=== PATIENT | male | born 1960 | race Caucasian/White ===

== ENCOUNTER → 2016-11-20 | Outpatient (CLI) | payer OTHER ==
[~2016-11-20] MED LIST: ASPI-232 PO; CLX20 PO; GABA1CAP PO; MULTTAB PO; TRVHP PO; [UNRECOGNIZED DRUG - CODE] PO; valcyclovir PO
[2016-11-25 11:38] LABS: LSP % CELLS ANALYZED CD4 26 % (30-61); LSP ABSOLUTE CT CD4 350 cells/uL (490-1740); LSP LYMPHOCYTES ABSOLUTE 1341 cells/uL (850-3900)
== END | disposition home or self-care (01) ==
LOC: C.LAB1850 10:44
PROVIDERS: ATTEND Internal Medicine Infectious Disease
DX: B20 Human immunodeficiency virus [HIV] disease (principal)

== ENCOUNTER → 2017-01-01 | Outpatient (CLI) | payer OTHER ==
--- NOTE | 2017-01-01 15:28 | DIAGNOSTIC IMAGING REPORT ---
CERVICAL SPINE 5 VIEWS CLINICAL HISTORY: Chronic neck pain. Cervicalgia. FINDINGS: AP, lateral, bilateral oblique, and odontoid views of the cervical spine are correlated with MRI of the cervical spine dated 07/09/2015. The skeletal structures are well mineralized. There is no radiographic evidence of fracture or subluxation. Vertebral body height is maintained. There is minimal anterolisthesis at C4-C5 and C6-C7. Alignment is otherwise preserved. The odontoid process and lateral masses appear intact on the open-mouth view. The spinolaminar line is preserved. There is mild to moderate degenerative disc space narrowing seen at C5-C6 and C6-C7. Posterior disc osteophyte complexes at C4-C5, C5-C6, and C6-C7 may contribute to minimal acquired compromise of the central canal. Anterior osteophytes are noted at C5-C6. Multilevel neural foraminal stenosis is suggested on the left, greatest at C4-C5 and C5-C6. Only mild neuroforaminal stenosis is suggested on the right. The prevertebral soft tissues are within normal limits. Partially imaged apical lung parenchyma appears clear. IMPRESSION: 1. No acute bony abnormality is seen involving the cervical spine. 2. Cervical spondylosis as detailed above. Dictated: 01/01/2017 11:05 AM Transcribed: 01/01/2017 3:28 PM [email or web address] Electronically signed by: Cristian Burciaga M.D. 01/01/2017 3:30 PM Dictated Date/Time: 01/01/2017 11:05 AM
== END | disposition home or self-care (01) ==
LOC: C.RAD 10:35
PROVIDERS: ATTEND Physician Assistant
DX: M54.12 Radiculopathy, cervical region (principal); M47.812 Spondylosis without myelopathy or radiculopathy, cervical region

== ENCOUNTER → 2017-02-04 | Outpatient (CLI) | payer OTHER ==
[2017-02-04 12:44] LABS: ALT/SGPT 18 U/L (12-78); BLOOD UREA NITROGEN 22 mg/dl (7-18); BUN/CREATININE RATIO 16.6 (10-20); CALCIUM 8.9 mg/dl (8.5-10.1); CARBON DIOXIDE 28 mmol/L (21-32); CHLORIDE 106 mmol/L (98-107); CHOLESTEROL 154 mg/dl (0-200); GLUCOSE 83 mg/dl (70-99); SODIUM 142 mmol/L (136-145); TRIGLYCERIDES 146 mg/dl (0-150); VERY LOW DENSITY LIPOPROT CALC 29 mg/dl
[2017-02-04 12:51] LABS: ALB/GLOB RATIO 1.3 (0.9-2); ALKALINE PHOSPHATASE 124 U/L (45-117); AST/SGOT 23 U/L (15-37); CHOLESTEROL/HDL RATIO 2.8; HDL CHOLESTEROL 56 mg/dl; LDL CHOLESTEROL CALCULATED 69 mg/dl
== END | disposition home or self-care (01) ==
LOC: C.LAB1850 11:20
PROVIDERS: ATTEND Internal Medicine
DX: R73.9 Hyperglycemia, unspecified (principal); E78.5 Hyperlipidemia, unspecified

== ENCOUNTER → 2017-03-09 | Outpatient (CLI) | payer OTHER ==
[2017-03-09 10:21] LABS: BASO % 0.2 %; BASO ABS # 0.01 K/uL (0-0.2); COMPLETE YES; IG% 0.2 %; LYMPH % 26.3 %; LYMPH ABS # 1.31 K/uL (1.2-3.4); MEAN CORPUSCULAR HEMOGLOBIN 33.5 pg (25-34); MEAN PLATELET VOLUME 8.9 fL (7.4-10.4); MONO % 8.2 %; NEUT % 63.1 %; PLATELET COUNT 190 K/uL (130-400); WHITE BLOOD COUNT 4.98 K/uL (4.8-10.8)
[2017-03-09 11:02] LABS: ALT/SGPT 18 U/L (12-78); AST/SGOT 20 U/L (15-37); BLOOD UREA NITROGEN 28 mg/dl (7-18); BUN/CREATININE RATIO 19.9 (10-20); CALCIUM 8.7 mg/dl (8.5-10.1); CARBON DIOXIDE 27 mmol/L (21-32); CHLORIDE 104 mmol/L (98-107); CHOLESTEROL 155 mg/dl (0-200); GLUCOSE 125 mg/dl (70-99); POTASSIUM 3.9 mmol/L (3.5-5.1); SODIUM 138 mmol/L (136-145)
[2017-03-09 11:06] LABS: ALB/GLOB RATIO 1.2 (0.9-2); ALKALINE PHOSPHATASE 129 U/L (45-117); CHOLESTEROL/HDL RATIO 2.9; HDL CHOLESTEROL 54 mg/dl; LDL CHOLESTEROL CALCULATED 76 mg/dl; TRIGLYCERIDES 125 mg/dl (0-150); VERY LOW DENSITY LIPOPROT CALC 25 mg/dl
[2017-03-12 14:16] LABS: CHLAMYDIA TRACH RNA*** NOT DETECTED (NOT DETECTED); GC (NEIS GONORRHOEAE)RNA** NOT DETECTED (NOT DETECTED); HEPATITIS C VIRAL RNA BY PCR <15 NOT DETECTED IU/ML (<15); HEPATITIS C VIRAL RNA(LOG) PCR <1.18 NOT DETECTED LOG IU/ML (<1.18); HERPES SIMPLEX AB IGG-1 3.25 INDEX (< 0.90); HERPES SIMPLEX AB IGG-2 4.44 INDEX (< 0.90); LSP % CELLS ANALYZED CD4 26 % (30-61); LSP ABSOLUTE CT CD4 355 cells/uL (490-1740); LSP LYMPHOCYTES ABSOLUTE 1365 cells/uL (850-3900)
== END | disposition home or self-care (01) ==
LOC: C.LAB1850 09:24
PROVIDERS: ATTEND Internal Medicine Infectious Disease
DX: B20 Human immunodeficiency virus [HIV] disease (principal)

== ENCOUNTER 2017-09-11 00:36 | Observation (INO) | payer OTHER ==
[~2017-09-11] VITALS: Ht 179.1 cm; Wt 77.0 kg
--- NOTE | 2017-09-11 00:58 | EMERGENCY ROOM VISIT NOTE ---
History Report prepared by Audie: Nahid Ayoub Under the Supervision of: Dr. Arya Patel M.D. First contact with patient: 00:49 Chief Complaint: CHEST PAIN Stated Complaint: CHEST PAIN History of Present Illness The patient is a 57 year old male who presents to the Emergency Room with complaints of worsening chest pain that began 2 hours ago. Patient states he was "texting a friend" when the symptoms came on. Patient describes the pain as a "heartburn". He states he his typically able to relieve the pain with Tums. Patient has associated symptoms of back pain and jaw pain. He denies any abdominal pain. Pertinent past medical history includes HIV. He states he been HIV positive for 33 years. Pertinent past surgical history includes a cholecystectomy. He states his PCP is Dr. Zafar. Patient states that he has a history of stress tests. He adds that he takes a baby aspirin a day. Pertinent past medical history includes a stroke in 2006. Pertinent family history includes cardiac stents. Patient adds that he has a history of IV drug use. Source of History: patient Onset: 2 hours ago Position: chest Timing: worsening Associated Symptoms: + back pain Note: Patient has jaw pain. Review of Systems See HPI for pertinent positives & negatives. A total of 10 systems reviewed and were otherwise negative. Past Medical & Surgical Medical Problems: (1) HTN (hypertension) (2) Precordial chest pain Family History Cancer Diabetes mellitus Gallbladder disease Heart disease Hypertension Lung disease Social History Smoking Status: Never Smoker Alcohol Use: occasionally Housing Status: lives with family Occupation Status: disabled Current/Historical Medications Scheduled Aspirin (Aspir-81), 1 TAB PO DAILY Bupropion Hcl (Wellbutrin Sr), 150 MG PO QAM Diclofenac Sodium (Topical) (Diclofenac Sodium), 1 APPLN TOP BID Duloxetine Hcl (Cymbalta), 60 MG PO DAILY Emtricitabine/Temofovir (Truvada 200/300MG), 1 TAB PO DAILY Gabapentin (Neurontin), 600 MG PO TID Lidocaine HCl (Lidocaine), 1 APPLN TOP UD Lopinavir/Ritonavir (Kaletra 200/50MG), 2 TAB PO BID Meloxicam (Meloxicam), 15 MG PO DAILY Multivitamins/Minerals (Mvi With Minerals), 1 TAB PO DAILY Tamsulosin Hcl (Flomax), 0.4 MG PO DAILY Valacyclovir Hcl (Valtrex), 1 GM PO DAILY Scheduled PRN Lorazepam (Lorazepam), 0.5 MG PO BID PRN for Anxiety Tizanidine Hcl (Zanaflex), 2 MG PO BID PRN for Muscle Spasms Zolpidem Tartrate (Zolpidem Tartrate), 10 MG PO HS PRN for Insomnia Allergies Coded Allergies: No Known Allergies (Unverified , 03/26/14) Physical Exam Vital Signs Date Time Temp Pulse Resp B/P (MAP) Pulse Ox O2 Delivery O2 Flow Rate FiO2 09/11/17 04:40 84 13 99 09/11/17 04:30 129/82 09/11/17 04:16 67 09/11/17 04:10 64 14 98 09/11/17 04:05 67 15 97 09/11/17 04:00 131/77 09/11/17 03:35 69 24 98 09/11/17 03:30 67 18 116/81 98 09/11/17 03:01 114/81 09/11/17 03:00 69 14 09/11/17 02:57 131/77 09/11/17 02:01 140/78 09/11/17 02:00 76 16 97 09/11/17 01:39 147/84 09/11/17 01:30 85 20 139/88 97 09/11/17 01:23 76 18 168/99 98 Room Air 09/11/17 01:00 100 Room Air 09/11/17 00:56 84 09/11/17 00:41 36.8 98 20 205/111 98 Room Air Physical Exam GENERAL: Patient is a healthy-appearing well-nourished male HEAD: Normocephalic atraumatic EYES: Ocular movements intact pupils equal and react to light OROPHARYNX mucous membranes are moist no exudates present no erythema or edema present NECK: Supple no nuchal rigidity CHEST: Good equal expansion LUNGS: Clear and equal to auscultation CARDIAC: Normal S1 and S2 ABDOMEN: Soft nontender no guarding BACK: No CVA tenderness EXTREMITIES: No pain upon palpation normal muscle strength in all groups no clubbing cyanosis or edema NEURO: Patient is following commands and answering questions appropriately. Alert and oriented x3 Cranial Nerves 2-12 grossly intact Medical Decision & Procedures ER Provider Diagnostic Interpretation: Radiology results as stated below were interpreted by me: Chest X-Ray: no evidence of congestion, pneumonia, and pneumothorax Laboratory Results 1/27/18 00:50 Red Blood Count 4.33, Mean Corpuscular Volume 94.7, Mean Corpuscular Hemoglobin 34.2, Mean Corpuscular Hemoglobin Concent 36.1, Mean Platelet Volume 9.1, Neutrophils (%) (Auto) 46.0, Lymphocytes (%) (Auto) 42.6, Monocytes (%) (Auto) 8.6, Eosinophils (%) (Auto) 2.2, Basophils (%) (Auto) 0.4, Neutrophils # (Auto) 2.08, Lymphocytes # (Auto) 1.93, Monocytes # (Auto) 0.39, Eosinophils # (Auto) 0.10, Basophils # (Auto) 0.02 09/11/17 00:50 Test 09/11/17 00:50 09/11/17 01:04 White Blood Count 4.53 K/uL (4.8-10.8) Red Blood Count 4.33 M/uL (4.7-6.1) Hemoglobin 14.8 g/dL (14.0-18.0) Hematocrit 41.0 % (42-52) Mean Corpuscular Volume 94.7 fL (80-100) Mean Corpuscular Hemoglobin 34.2 pg (25-34) Mean Corpuscular Hemoglobin Concent 36.1 g/dl (32-36) Platelet Count 176 K/uL (130-400) Mean Platelet Volume 9.1 fL (7.4-10.4) Neutrophils (%) (Auto) 46.0 % Lymphocytes (%) (Auto) 42.6 % Monocytes (%) (Auto) 8.6 % Eosinophils (%) (Auto) 2.2 % Basophils (%) (Auto) 0.4 % Neutrophils # (Auto) 2.08 K/uL (1.4-6.5) Lymphocytes # (Auto) 1.93 K/uL (1.2-3.4) Monocytes # (Auto) 0.39 K/uL (0.11-0.59) Eosinophils # (Auto) 0.10 K/uL (0-0.5) Basophils # (Auto) 0.02 K/uL (0-0.2) RDW Standard Deviation 46.1 fL (36.4-46.3) RDW Coefficient of Variation 13.3 % (11.5-14.5) Immature Granulocyte % (Auto) 0.2 % Immature Granulocyte # (Auto) 0.01 K/uL (0.00-0.02) Est Creatinine Clear Calc Drug Dose 64.1 ml/min Estimated GFR () 68.0 Estimated GFR (Non- 58.6 BUN/Creatinine Ratio 21.6 (10-20) Calcium Level 9.3 mg/dl (8.5-10.1) Total Bilirubin 0.4 mg/dl (0.2-1) Direct Bilirubin < 0.1 mg/dl (0-0.2) Aspartate Amino Transf (AST/SGOT) 22 U/L (15-37) Alanine Aminotransferase (ALT/SGPT) 18 U/L (12-78) Alkaline Phosphatase 157 U/L (45-117) Total Creatine Kinase 136 U/L (39-308) Creatine Kinase MB 6.9 ng/ml (0.5-3.6) Creatine Kinase MB Ratio 5.1 (0-3.0) Troponin I < 0.015 ng/ml (0-0.045) Pro-B-Type Natriuretic Peptide 20 pg/ml (0-900) Total Protein 7.9 gm/dl (6.4-8.2) Albumin 4.6 gm/dl (3.4-5.0) Lipase 164 U/L (73-393) Bedside Hemoglobin 14.3 g/dl (14.0-18.0) Bedside Hematocrit 42 % (42-52) Bedside Sodium 142 mEq/L (135-144) Bedside Potassium 4.0 mEq/L (3.3-5.0) Bedside Chloride 101 mEq/L (101-112) Bedside Total CO2 29 mEq/l (24-31) Anion Gap 16.0 mmol/L (16-25) Bedside Blood Urea Nitrogen 31 mg/dl (7-18) Bedside Creatinine 1.4 mg/dl (0.6-1.3) Bedside Glucose (other) 102 mg/dl (70-99) Bedside Ionized Calcium (Timothy) 1.23 mmol/l (1.12-1.32) Medications Administered Medications (Trade) Dose Ordered Sig/Denae Route Start Time Stop Time Status Last Admin Dose Admin Nitroglycerin (Nitrostat Tab) 0.4 mg Q5M PRN SL 09/11/17 01:00 10/11/17 00:59 1/27/18 01:25 0.4 MG Aspirin (Aspirin Chew) 324 mg NOW STAT PO 09/11/17 01:24 09/11/17 01:26 DC 09/11/17 01:38 324 MG Nitroglycerin (Nitroglycerin 2% Oint) 1 inch NOW STAT EXT 09/11/17 01:30 09/11/17 01:32 DC 09/11/17 01:40 1 INCH Acetaminophen (Tylenol Tab) 1,000 mg NOW STAT PO 09/11/17 01:30 09/11/17 01:32 DC 09/11/17 01:40 1,000 MG Hydromorphone HCl (Dilaudid Inj) 0.5 mg NOW STAT IV 09/11/17 01:39 09/11/17 01:41 DC 09/11/17 01:52 0.5 MG Ondansetron HCl (Zofran Inj) 4 mg NOW STAT IV 09/11/17 01:39 09/11/17 01:41 DC 09/11/17 01:51 4 MG ECG Indication: chest pain Rate (beats per minute): 76 Rhythm: normal sinus Findings: no acute ischemic change, no ectopy, other (Septal Infarct) Comparison ECG Date: 03/26/2014 Change: no significant change Change: Patient's electrocardiogram was interpreted by me. ED Course 0100: Past medical records reviewed. The patient was evaluated in room C3. A complete history and physical examination was performed. 0100: Ioversol 100ml IV, Nitroglycerin 0.4mg 0124: Aspirin 324mg PO 0130: Tylenol Tab 1000mg PO, Nitroglycerin 1in EXT 0139: Zofran Inj 4mg IV, Dilaudid Inj 0.5mg IV 0304: Upon reexamination the patient will be further evaluated. I discussed results and treatment plan with the patient. He verbalizes agreement and understanding. [facility] The patient will be evaluated for further management. Medical Decision Differential diagnosis: Etiologies such as cardiac ischemia, aortic dissection, pulmonary embolism, pneumonia, pneumothorax, musculoskeletal, infections, pericarditis, myocarditis , esophageal rupture, gastrointestinal, as well as others were entertained. This is a 57-year-old male who presents emergency department complaining of chest pain that radiates into his back into his jaw. The chest pain was relieved by nitroglycerin therefore he was placed on Nitropaste. He was also given Dilaudid to make him more comfortable. The patient has a normal CK and troponin as well as a normal EKG. He was sent for CAT scan which did not show any evidence of dissection. I did discuss the case with the hospitalist who agreed to admit the patient. Patient was in agreement with the treatment plan. Impression Primary Impression: Chest pain Scribe Attestation The scribe's documentation has been prepared under my direction and personally reviewed by me in its entirety. I confirm that the note above accurately reflects all work, treatment, procedures, and medical decision making performed by me. Departure Information Dispostion Being Evaluated By Hospitalist Referrals RV. Villeda MD (PCP) Forms Call Back Authorization, HOME CARE DOCUMENTATION FORM, IMPORTANT VISIT INFORMATION Patient Instructions My [facility] Problem Qualifiers Primary Impression: Chest pain Chest pain type: unspecified Qualified Codes: R07.9 - Chest pain, unspecified
[2017-09-11] MEDS ORDERED: OPTIRAY 320 IV PRN (01:00)
[2017-09-11 01:08] LABS: BASO % 0.4 %; BASO ABS # 0.02 K/uL (0-0.2); EOS % 2.2 %; HEMOGLOBIN 14.8 g/dL (14.0-18.0); IG# 0.01 K/uL (0.00-0.02); LYMPH % 42.6 %; LYMPH ABS # 1.93 K/uL (1.2-3.4); MEAN CELL VOLUME 94.7 fL (80-100); MEAN CORPUSCULAR HEMOGLOBIN 34.2 pg (25-34); MEAN CORPUSCULAR HGB CONC 36.1 g/dl (32-36); MEAN PLATELET VOLUME 9.1 fL (7.4-10.4); MONO % 8.6 %; MONO ABS # 0.39 K/uL (0.11-0.59); NEUT ABS # 2.08 K/uL (1.4-6.5); PLATELET COUNT 176 K/uL (130-400); RED CELL DISTRIBUTION WIDTH CV 13.3 % (11.5-14.5); RED CELL DISTRIBUTION WIDTH SD 46.1 fL (36.4-46.3); WHITE BLOOD COUNT 4.53 K/uL (4.8-10.8)
[2017-09-11] MEDS: NITROGLYCERIN 0.4 MG SL PER TAB CHARGE SL PRN ×2 (01:11→01:25)
[2017-09-11 01:15] LABS: ISTAT CREATININE 1.4 mg/dl (0.6-1.3); ISTAT IONIZED CALCIUM 1.23 mmol/l (1.12-1.32)
[2017-09-11] MEDS ORDERED: ASPIRIN 81 MG CHEW PO STA (01:24)
[2017-09-11] MEDS ORDERED: ACETAMINOPHEN 500 MG TAB PO STA (01:30)
[2017-09-11] MEDS ORDERED: NITROGLYCERIN 2% OINTMENT 30GM TUBE EXT STA (01:30)
[2017-09-11] MEDS ORDERED: ONDANSETRON INJ 2 MG/ML 2 ML VIAL IV STA (01:39)
[2017-09-11] MEDS ORDERED: HYDROmorphone INJ 1 MG/ML SYR IV STA (01:39)
[2017-09-11 01:52] LABS: ALBUMIN 4.6 gm/dl (3.4-5.0); ALT/SGPT 18 U/L (12-78); AST/SGOT 22 U/L (15-37); BLOOD UREA NITROGEN 29 mg/dl (7-18); CALCIUM 9.3 mg/dl (8.5-10.1); CARBON DIOXIDE 31 mmol/L (21-32); CREATININE 1.32 mg/dl (0.60-1.40); GLUCOSE 98 mg/dl (70-99); LIPASE 164 U/L (73-393); SODIUM 139 mmol/L (136-145)
[2017-09-11 01:58] LABS: ALKALINE PHOSPHATASE 157 U/L (45-117); CKMB 6.9 ng/ml (0.5-3.6); TOTAL PROTEIN 7.9 gm/dl (6.4-8.2)
[2017-09-11] MEDS ORDERED: DULO60CA44 PO (02:20)
[2017-09-11] MEDS ORDERED: MELO15TA4 PO (02:20)
[2017-09-11] MEDS ORDERED: BUPR150T7 PO (02:20)
[2017-09-11] MEDS ORDERED: VALA1TAB31 PO (02:20)
[2017-09-11] MEDS ORDERED: TIZA2TAB3 PO (02:20)
[2017-09-11] MEDS ORDERED: DICL1GEL34 TOP (02:20)
[2017-09-11] MEDS ORDERED: ZOLP10TA6 PO (02:20)
[2017-09-11] MEDS ORDERED: LORA0.5T12 PO (02:20)
[2017-09-11] MEDS ORDERED: TAMS0.4C38 PO (02:20)
[2017-09-11] MEDS ORDERED: NRN800 PO (02:20)
[2017-09-11] MEDS ORDERED: GABA-113 PO (02:27)
[2017-09-11] MEDS ORDERED: XYLO/5 TOP (02:31)
--- NOTE | 2017-09-11 04:53 | History and Physical ---
History & Physical Date & Time of Service: Sep 11, 2017 at 04:53 Chief Complaint: Chest Pain Primary Care Physician: RV. Villeda MD History of Present Illness Source: patient, family, hospital records 57-year-old male with a past medical history of stroke, HIV presented to the ER with complaints of chest pain which started about 2 hours prior to arrival while at rest. He stated that the pain was about a 9/10 in severity with radiation to the jaw and his right extremity. Denies any shortness of breath or palpitations or lightheadedness. He thought that his pain was secondary to reflux and took Tums with no relief. he is a nonsmoker but has a family history of heart disease at age 55. In the ER he received 2 sublingual nitroglycerin tablets along with a nitroglycerin patch which seemed to have relieved his pain. Past Medical/Surgical History Medical Problems: (1) HTN (hypertension) Status: Chronic Family History Cancer Diabetes mellitus Gallbladder disease Heart disease Hypertension Lung disease Social History Smoking Status: Never Smoker Smokeless Tobacco Use: No Alcohol Use: none Drug Use: none Occupational Status: disabled Immunizations History of Influenza Vaccine: Yes Influenza Vaccine Date: May 07, 2011 History of Tetanus Vaccine?: Yes Tetanus Immunization Date: May 07, 2007 History of Pneumococcal: Yes History of Hepatitis B Vaccine: Yes Multi-Drug Resistant Organisms History of MDRO: No Allergies Coded Allergies: No Known Allergies (Unverified , 03/26/14) Home Medications Scheduled Aspirin (Aspir-81), 1 TAB PO DAILY Bupropion Hcl (Wellbutrin Sr), 150 MG PO QAM Diclofenac Sodium (Topical) (Diclofenac Sodium), 1 APPLN TOP BID Duloxetine Hcl (Cymbalta), 60 MG PO DAILY Emtricitabine/Temofovir (Truvada 200/300MG), 1 TAB PO DAILY Gabapentin (Neurontin), 600 MG PO TID Lidocaine HCl (Lidocaine), 1 APPLN TOP UD Lopinavir/Ritonavir (Kaletra 200/50MG), 2 TAB PO BID Meloxicam (Meloxicam), 15 MG PO DAILY Multivitamins/Minerals (Mvi With Minerals), 1 TAB PO DAILY Tamsulosin Hcl (Flomax), 0.4 MG PO DAILY Valacyclovir Hcl (Valtrex), 1 GM PO DAILY Scheduled PRN Lorazepam (Lorazepam), 0.5 MG PO BID PRN for Anxiety Tizanidine Hcl (Zanaflex), 2 MG PO BID PRN for Muscle Spasms Zolpidem Tartrate (Zolpidem Tartrate), 10 MG PO HS PRN for Insomnia Review of Systems Constitutional: No fever, No chills Eyes: No worsening of vision ENT: No hearing loss Respiratory: No cough, No sputum, No shortness of breath, No dyspnea on exertion Cardiovascular: + chest pain, No orthopnea Abdomen: No pain, No nausea, No vomiting, No diarrhea Musculoskeletal: No joint pain Genitourinary - Male: No hematuria Neurologic: No memory loss Psychiatric: No depression symptoms Physical Exam Vital Signs Date Time Temp Pulse Resp B/P (MAP) Pulse Ox O2 Delivery O2 Flow Rate FiO2 09/11/17 04:16 67 09/11/17 04:05 67 15 97 09/11/17 04:00 131/77 09/11/17 03:35 69 24 98 09/11/17 03:30 67 18 116/81 98 09/11/17 03:01 114/81 09/11/17 03:00 69 14 09/11/17 02:57 131/77 09/11/17 02:01 140/78 09/11/17 02:00 76 16 97 09/11/17 01:39 147/84 09/11/17 01:30 85 20 139/88 97 09/11/17 01:23 76 18 168/99 98 Room Air 09/11/17 01:00 100 Room Air 09/11/17 00:56 84 09/11/17 00:41 36.8 98 20 205/111 98 Room Air General Appearance: WD/WN, no apparent distress Eyes: normal inspection ENT: normal ENT inspection, hearing grossly normal Neck: supple Respiratory/Chest: chest non-tender, lungs clear, normal breath sounds, no respiratory distress, no accessory muscle use Cardiovascular: regular rate, rhythm Abdomen/GI: normal bowel sounds, non tender, soft Extremities/Musculoskelatal: no pedal edema Neurologic/Psych: alert, normal mood/affect Skin: normal color Diagnostics Laboratory Results Results Past 24 Hours Test 09/11/17 00:50 09/11/17 01:04 Range/Units White Blood Count 4.53 4.8-10.8 K/uL Red Blood Count 4.33 4.7-6.1 M/uL Hemoglobin 14.8 14.0-18.0 g/dL Hematocrit 41.0 42-52 % Mean Corpuscular Volume 94.7 80-100 fL Mean Corpuscular Hemoglobin 34.2 25-34 pg Mean Corpuscular Hemoglobin Concent 36.1 32-36 g/dl Platelet Count 176 130-400 K/uL Mean Platelet Volume 9.1 7.4-10.4 fL Neutrophils (%) (Auto) 46.0 % Lymphocytes (%) (Auto) 42.6 % Monocytes (%) (Auto) 8.6 % Eosinophils (%) (Auto) 2.2 % Basophils (%) (Auto) 0.4 % Neutrophils # (Auto) 2.08 1.4-6.5 K/uL Lymphocytes # (Auto) 1.93 1.2-3.4 K/uL Monocytes # (Auto) 0.39 0.11-0.59 K/uL Eosinophils # (Auto) 0.10 0-0.5 K/uL Basophils # (Auto) 0.02 0-0.2 K/uL RDW Standard Deviation 46.1 36.4-46.3 fL RDW Coefficient of Variation 13.3 11.5-14.5 % Immature Granulocyte % (Auto) 0.2 % Immature Granulocyte # (Auto) 0.01 0.00-0.02 K/uL Sodium Level 139 136-145 mmol/L Potassium Level 4.0 3.5-5.1 mmol/L Chloride Level 104 98-107 mmol/L Carbon Dioxide Level 31 21-32 mmol/L Anion Gap 4.0 16.0 16-25 mmol/L Blood Urea Nitrogen 29 7-18 mg/dl Creatinine 1.32 0.60-1.40 mg/dl Est Creatinine Clear Calc Drug Dose 64.1 ml/min Estimated GFR () 68.0 Estimated GFR (Non- 58.6 BUN/Creatinine Ratio 21.6 10-20 Random Glucose 98 70-99 mg/dl Calcium Level 9.3 8.5-10.1 mg/dl Total Bilirubin 0.4 0.2-1 mg/dl Direct Bilirubin < 0.1 0-0.2 mg/dl Aspartate Amino Transf (AST/SGOT) 22 15-37 U/L Alanine Aminotransferase (ALT/SGPT) 18 12-78 U/L Alkaline Phosphatase 157 45-117 U/L Total Creatine Kinase 136 39-308 U/L Creatine Kinase MB 6.9 0.5-3.6 ng/ml Creatine Kinase MB Ratio 5.1 0-3.0 Troponin I < 0.015 0-0.045 ng/ml Pro-B-Type Natriuretic Peptide 20 0-900 pg/ml Total Protein 7.9 6.4-8.2 gm/dl Albumin 4.6 3.4-5.0 gm/dl Lipase 164 73-393 U/L Bedside Hemoglobin 14.3 14.0-18.0 g/dl Bedside Hematocrit 42 42-52 % Bedside Sodium 142 135-144 mEq/L Bedside Potassium 4.0 3.3-5.0 mEq/L Bedside Chloride 101 101-112 mEq/L Bedside Total CO2 29 24-31 mEq/l Bedside Blood Urea Nitrogen 31 7-18 mg/dl Bedside Creatinine 1.4 0.6-1.3 mg/dl Bedside Glucose (other) 102 70-99 mg/dl Bedside Ionized Calcium (Timothy) 1.23 1.12-1.32 mmol/l EKG Normal sinus rhythm Septal infarct , age undetermined Abnormal ECG When compared with ECG of 26-MAR-2014 01:05, Septal infarct is now Present Impression Assessment and Plan 57-year-old male with a past medical history of stroke, HIV presented to the ER with complaints of chest pain which started about 2 hours prior to arrival while at rest. Precordial chest pain: -EKG normal sinus rhythm with septal infarct of undetermined age -Initial troponin negative, trended every 8 hours -Echo currently pending - Continue aspirin and Nitro glycerin - Fasting lipids ordered HIV -continue Truvada and Kaletra BPH -Continue Flomax Anxiety/depression -Continue Cymbalta and Ativan as needed DVT prophylaxis: SCDs Full code Disposition :observation in telemetry Attending addendum: I have physically seen this patient, have supervised the medical residents activities, and agree with the H&P unless as otherwise noted. Assessment and Plan: Precordial chest pain-- The patient will be admitted to telemetry for serial cardiac enzymes, serial EKG's, cardiac rhythm monitoring and a 2-D echocardiogram with Dopplers. Aspirin 81 mg daily and nitroglycerin when necessary HIV-- Continue Truvada and Kaletra BPH-- Continue Flomax at bedtime X Anxiety with depression-- Continue Cymbalta Ativan when necessary Level of Care Telemetry Advanced Directives Existing Advance Directive: No Existing Living Will: No Existing Power of E M Assembler: No Resuscitation Status FULL RESUSCITATION VTE Prophylaxis VTE Risk Assessment Done? Y/N: Yes Risk Level: Moderate Given or contraindicated: SCD's
[2017-09-11] MEDS ORDERED: NITROGLYCERIN 0.4 MG SL PER TAB CHARGE SL PRN (05:00)
[2017-09-11] MEDS ORDERED: POLYETHYLENE (MIRALAX) 17 GM PACK PO PRN (05:00)
[2017-09-11] MEDS ORDERED: ALUMINUM/MAGNESIUM/SIMETH (MAALOX MAX) 30 ML UDC PO PRN (05:00)
[2017-09-11] MEDS ORDERED: ONDANSETRON INJ 2 MG/ML 2 ML VIAL IV PRN (05:00)
[2017-09-11] MEDS ORDERED: ACETAMINOPHEN 325 MG TAB PO PRN (05:00)
[2017-09-11] MEDS ORDERED: HYDROmorphone INJ 0.5 MG/0.5 ML SYR IV PRN (05:15)
[2017-09-11 05:35] VITALS: BP 146/82; PULSE 62; TEMP 36.7; O2SAT 96; Ht 179.1 cm; Wt 77.0 kg
[2017-09-11] MEDS ORDERED: IV FLUIDS COMPLETED PRN (05:45)
[2017-09-11 07:57] VITALS: BP 107/63; PULSE 67; TEMP 36.5; O2SAT 97
[2017-09-11 08:00] VITALS: BP 146/82; PULSE 62; TEMP 36.7; O2SAT 96
--- NOTE | 2017-09-11 08:28 | DIAGNOSTIC IMAGING REPORT ---
CHEST ONE VIEW PORTABLE CLINICAL HISTORY: Chest pain. COMPARISON STUDY: Chest radiograph March 26, [address] December 18, 2013. FINDINGS: Incidental note is made of an azygos fissure. No pneumothorax or pleural effusion is noted. There is no evidence for pulmonary edema. Cardiomediastinal silhouette is unremarkable. IMPRESSION: No acute cardiopulmonary findings. Electronically signed by: Jules Dale M.D. 09/11/2017 8:27 AM Dictated Date/Time: 09/11/2017 8:25 AM
--- NOTE | 2017-09-11 08:41 | DIAGNOSTIC IMAGING REPORT ---
CHEST COMBO ANGIO DISSECTION CLINICAL HISTORY: Chest pain. Evaluate for dissection. COMPARISON STUDY: Chest CT December 18, 2013. TECHNIQUE: Unenhanced and arterial phase imaging of the chest was performed. Injection of 119 cc Optiray 320 IV was uneventful. Sagittal and coronal reconstructions were viewed as well as maximal intensity projections on an independent 3-D workstation. FINDINGS: Incidental note is made of an aberrant right subclavian artery. There is no intramural hematoma or dissection within the thoracic aorta. There is no aneurysmal dilatation. There is minimal dilatation of the aortic root at the level the sinuses of Valsalva, measuring approximately 4.2 cm. This is similar to CT of December. No pulmonary emboli are identified. The central airways are patent. There is no consolidation. No pneumothorax or pleural effusion is noted. Groundglass opacities reflect atelectasis. Upper abdomen is unremarkable. IMPRESSION: 1. No thoracic aortic dissection. No thoracic aortic aneurysm. Slight aortic root dilatation at the level of the sinuses of Valsalva, measuring 4.2 cm. 2. No acute intrathoracic findings. Electronically signed by: Jules Dale M.D. 09/11/2017 8:39 AM Dictated Date/Time: 09/11/2017 8:27 AM
[2017-09-11] MEDS ORDERED: SODIUM CHLORIDE 0.9% 1000ML 1,000 ML IV SCH (08:45)
--- NOTE | 2017-09-11 09:21 | ECHOCARDIOGRAM REPORT ---
*NOTICE TO RECEIVING [facility] This information is strictly Confidential and protected under [place] law. [place] law prohibits you from making any further disclosure of this information unless further disclosure is expressly permitted by the written consent of the person to whom it pertains or is authorized by law. A general authorization for the release of medical or other information is not sufficient for this purpose. Hospital accepts no responsibility if the information is made available to any other person, INCLUDING THE PATIENT. Interpretation Summary * Name: JOSE M CRAWFORD Study Date: 09/11/2017 06:42 AM BP: 155/96 mmHg * Patient Location: C.2T\S\S242\S\2 HR: 68 * : 1960 (M/d/yyyy) Gender: Male Height: 70 in * Age: 57 yrs Ethnicity: CA Weight: 169 lb * Ordering Physician: Lashay Roque * Referring Physician: Self, Referred * Performed By: Nicolle Arora RDCS * * Reason For Study: Chest Pain * BSA: 1.9 m2 * -- Conclusions -- * The left ventricle is grossly normal size. * There is normal left ventricular wall thickness. * Ejection Fraction = 65-70%. * The left ventricular wall motion is normal. * The right ventricle is normal in size and function. * The right ventricular systolic function is normal as assessed by tricuspid annular plane systolic excursion (TAPSE) (normal >1.5 cm). * Mild aortic root and ascending aortic dilation (3.7 cm) * Grade I diastolic dysfunction, (abnormal relaxation pattern). * Normal LA Pressures Procedure Details * A complete two-dimensional transthoracic echocardiogram was performed (2D, M-mode, Doppler and color flow Doppler). Left Ventricle * The left ventricle is grossly normal size. * There is normal left ventricular wall thickness. * Ejection Fraction = 65-70%. * The left ventricular wall motion is normal. Right Ventricle * The right ventricle is normal in size and function. * The right ventricular systolic function is normal as assessed by tricuspid annular plane systolic excursion (TAPSE) (normal >1.5 cm). Atria * The left atrial size is normal. * Right atrial size is normal. Mitral Valve * The mitral valve is grossly normal. Tricuspid Valve * The tricuspid valve is not well visualized, but is grossly normal. * There is trace tricuspid regurgitation. Aortic Valve * The aortic valve is trileaflet. Pulmonic Valve * The pulmonic valve is not well seen, but is grossly normal. * Mild pulmonic valvular regurgitation. Great Vessels * Mild aortic root and ascending aortic dilation (3.7 cm) Pericardium/Pleural * There is no pericardial effusion. Great Vessels * Normal inferior vena cava diameter and respiratory variation suggests normal central venous pressure. Left Ventricular Diastolic Function * Grade I diastolic dysfunction, (abnormal relaxation pattern). * Normal LA Pressures MMode 2D Measurements and Calculations IVSd 1.2 cm IVSs 1.5 cm LVIDd 3.8 cm LVIDs 2.3 cm LVPWd 1.1 cm LVPWs 1.6 cm IVS/LVPW 1.0 FS 38.9 % EDV(Teich) 63.6 ml ESV(Teich) 19.1 ml EF(Teich) 70.0 % EDV(cubed) 56.8 ml ESV(cubed) 13.0 ml EF(cubed) 77.2 % % IVS thick 24.5 % % LVPW thick 39.1 % LV mass(C)d 147.3 grams LV mass(C)dI 75.8 grams/m\S\2 LV mass(C)s 120.4 grams LV mass(C)sI 62.0 grams/m\S\2 SV(Teich) 44.5 ml SI(Teich) 22.9 ml/m\S\2 SV(cubed) 43.8 ml SI(cubed) 22.5 ml/m\S\2 Ao root diam 3.9 cm Ao root area 12.0 cm\S\2 ACS 2.3 cm LA dimension 2.9 cm asc Aorta Diam 3.6 cm LA/Ao 0.74 LVAd ap4 27.1 cm\S\2 LVLd ap4 7.7 cm EDV(MOD-sp4) 80.0 ml EDV(sp4-el) 81.3 ml LVAs ap4 13.6 cm\S\2 LVLs ap4 6.2 cm ESV(MOD-sp4) 28.0 ml ESV(sp4-el) 25.3 ml EF(MOD-sp4) 65.0 % EF(sp4-el) 68.9 % LVAd ap2 29.2 cm\S\2 LVLd ap2 8.6 cm EDV(MOD-sp2) 85.8 ml EDV(sp2-el) 84.3 ml LVAs ap2 12.9 cm\S\2 LVLs ap2 6.4 cm ESV(MOD-sp2) 23.7 ml ESV(sp2-el) 22.1 ml EF(MOD-sp2) 72.4 % EF(sp2-el) 73.8 % LVLd %diff 10.8 % EDV(MOD-bp) 85.0 ml LVLs %diff 2.6 % ESV(MOD-bp) 26.2 ml EF(MOD-bp) 69.2 % SV(MOD-sp4) 52.0 ml SI(MOD-sp4) 26.8 ml/m\S\2 SV(MOD-sp2) 62.1 ml SI(MOD-sp2) 32.0 ml/m\S\2 SV(MOD-bp) 58.8 ml SI(MOD-bp) 30.3 ml/m\S\2 SV(sp4-el) 56.0 ml SI(sp4-el) 28.8 ml/m\S\2 SV(sp2-el) 62.2 ml SI(sp2-el) 32.0 ml/m\S\2 Doppler Measurements and Calculations MV E max luis angel 44.9 cm/sec MV A max luis angel 61.5 cm/sec MV E/A 0.73 MV dec time 0.34 sec Ao V2 max 98.6 cm/sec Ao max PG 3.9 mmHg Ao max PG (full) 1.2 mmHg AI max luis angel 148.9 cm/sec AI max PG 8.9 mmHg AI dec slope 107.9 cm/sec\S\2 AI P1/2t 404.5 msec LV V1 max PG 2.7 mmHg LV V1 max 82.3 cm/sec PA V2 max 74.2 cm/sec PA max PG 2.2 mmHg PI max luis angel 160.5 cm/sec PI max PG 10.4 mmHg PI dec slope 100.7 cm/sec\S\2 PI P1/2t 466.8 msec TR max luis angel 102.7 cm/sec
[2017-09-11 11:21] VITALS: BP 126/70; PULSE 62; TEMP 36.7; O2SAT 98
[2017-09-11 12:20] VITALS: O2SAT 96
--- NOTE | 2017-09-11 13:26 | Discharge Instructions ---
Discharge Instructions Date of Service Sep 11, 2017. Admission Reason for Admission: Precordial Chest Pain Discharge Discharge Diagnosis / Problem: non typical chest pain Discharge Goals Goal(s): Diagnostic testing, Therapeutic intervention Activity Recommendations Activity Limitations: as noted below Lifting Limitations: gradually increase as tolerated . Current Hospital Diet Patient's current hospital diet: Regular Diet Discharge Diet Recommended Diet: Regular Diet Pending Studies Studies pending at discharge: no Laboratory Results Lipid Panel Test 09/11/17 05:12 Range/Units Triglycerides Level 148 0-150 mg/dl Cholesterol Level 165 0-200 mg/dl HDL Cholesterol 45 mg/dl Cholesterol/HDL Ratio 3.7 LDL Cholesterol, Calculated 90 mg/dl Medical Emergencies . Who to Call and When: Medical Emergencies: If at any time you feel your situation is an emergency, please call 911 immediately. . Non-Emergent Contact Non-Emergency issues call your: [employer] [facility] Call Non-Emergent contact if: temperature is above 101, your pain is unusual for you . . "Provider Documentation" section prepared by Nahid Alberto. . VTE Core Measure Inpt VTE Proph given/why not?: SCD's
--- NOTE | 2017-09-11 13:31 | Discharge Summary ---
Discharge Summary Date of Service Sep 11, 2017. Discharge Summary Admission Date: Sep 11, 2017 at 04:54 Discharge Date: Sep 11, 2017 Discharge Disposition: Home Principal Diagnosis: atypical chest pain Immunizations: Have You Had Influenza Vaccine: Yes Influenza Vaccine Date: May 07, 2011 History of Tetanus Vaccine?: Yes Tetanus Immunization Date: May 07, 2007 History of Pneumococcal: Yes History of Hepatitis B Vaccine: Yes Procedures: 2 troponin negative and no acute changes on ECG Medication Reconciliation Continued Medications: Aspirin (Aspir-81) 81 Mg Tab 1 TAB PO DAILY Bupropion Hcl (Wellbutrin Sr) 150 Mg Tab 150 MG PO QAM Diclofenac Sodium (Topical) (Diclofenac Sodium) 1 % Gel 1 APPLN TOP BID left side of back Duloxetine Hcl (Cymbalta) 60 Mg Cap 60 MG PO DAILY, CAP Emtricitabine/Temofovir (Truvada 200/300MG) Tab 1 TAB PO DAILY, TAB Gabapentin (Neurontin) 300 Mg Cap 600 MG PO TID, CAP Lidocaine HCl (Lidocaine) 150 Appln/50 Gm Oint 1 APPLN TOP UD compound with gabapentin 800 Lopinavir/Ritonavir (Kaletra 200/50MG) Tab 2 TAB PO BID, TAB Lorazepam (Lorazepam) 0.5 Mg Tab 0.5 MG PO BID PRN for Anxiety Meloxicam (Meloxicam) 15 Mg Tab 15 MG PO DAILY Multivitamins/Minerals (Mvi With Minerals) Tab 1 TAB PO DAILY, TAB Tamsulosin Hcl (Flomax) 0.4 Mg Cap 0.4 MG PO DAILY Tizanidine Hcl (Zanaflex) 2 Mg Tab 2 MG PO BID PRN for Muscle Spasms Valacyclovir Hcl (Valtrex) 1 Gm Tab 1 GM PO DAILY Zolpidem Tartrate (Zolpidem Tartrate) 10 Mg Tab 10 MG PO HS PRN for Insomnia Discharge Exam Review of Systems: Constitutional: No fever, No chills Respiratory: No cough, No sputum Cardiovascular: No chest pain, No orthopnea Abdomen: No pain, No nausea, No diarrhea Musculoskeletal: No joint pain, No muscle pain Psychiatric: No depression symptoms, No anhedonism, No anxiety Physical Exam: General Appearance: WD/WN, no apparent distress Neck: supple, no JVD Respiratory/Chest: chest non-tender, lungs clear, normal breath sounds Cardiovascular: regular rate, rhythm, no murmur Neurologic/Psychiatric: alert, oriented x 3 Hospital Course 57-year-old male presented to the ER with complaints of chest pain which started about 2 hours prior to arrival while at rest, the patient states the chest pain occurred after a verbal argument with a friend of his. The patient also stated he ate at a later time than usual for him on this day. He is in no recurrence of his discomfort he's had negative enzymes and EKGs and has ambulated without difficulty and the unit he typically follows with Dr. Bill and is comfortable going home to have an outpatient appointment with him in the following week. He does have a past medical history of stroke, HIV. Atypical chest pain: -Patient has had no recurrence hemodynamically ambulation and the patient now believes this may be stress related echocardiogram is pending at the time of discharge but he will have an outpatient stress test scheduled with Dr. Bill HIV has been stable on Truvada and Kaletra BPH no urinary symptoms with Flomax Anxiety/depression other than this episode his stress has been well controlled with Cymbalta and Ativan as needed Full code Total Time Spent: Greater than 30 minutes This includes examination of the patient, discharge planning, medication reconciliation, and communication with other providers. Discharge Instructions Please refer to the electronic Patient Visit Report (Discharge Instructions) for additional information.
[2017-09-11 14:36] VITALS: BP 126/70; PULSE 62; TEMP 36.7; O2SAT 96
== END 2017-09-11 15:01 | disposition home or self-care (01) ==
LOC: C.EDB 00:37 → C.2T 04:54 → ENRESERV 05:04
PROVIDERS: ADMIT Family Medicine; ATTEND Internal Medicine
DX: R07.89 Other chest pain (principal); I10 Essential (primary) hypertension; Z79.82 Long term (current) use of aspirin; Z86.73 Personal history of transient ischemic attack (TIA), and cerebral infarction without residual deficits; Z21 Asymptomatic human immunodeficiency virus [HIV] infection status; N40.0 Benign prostatic hyperplasia without lower urinary tract symptoms

== ENCOUNTER → 2017-09-13 | Outpatient (CLI) | payer OTHER ==
[~2017-09-13] MED LIST changes: +BUPR150T7 PO; -CLX20 PO; +DICL1GEL34 TOP; +DULO60CA44 PO; +GABA-113 PO; -GABA1CAP PO; +LORA0.5T12 PO; +MELO15TA4 PO; +TAMS0.4C38 PO; +TIZA2TAB3 PO; +VALA1TAB31 PO; +XYLO/5 TOP; +ZOLP10TA6 PO; -valcyclovir PO
[2017-09-13 10:56] LABS: ALT/SGPT 14 U/L (12-78); BLOOD UREA NITROGEN 21 mg/dl (7-18); CALCIUM 8.5 mg/dl (8.5-10.1); CARBON DIOXIDE 26 mmol/L (21-32); CHOLESTEROL 159 mg/dl (0-200); CREATININE 1.27 mg/dl (0.60-1.40); GLUCOSE 92 mg/dl (70-99); SODIUM 141 mmol/L (136-145)
[2017-09-13 11:03] LABS: ALKALINE PHOSPHATASE 119 U/L (45-117); AST/SGOT 20 U/L (15-37); LDL CHOLESTEROL CALCULATED 78 mg/dl; TOTAL PROTEIN 7.2 gm/dl (6.4-8.2)
== END | disposition home or self-care (01) ==
LOC: C.LAB1850 08:50
PROVIDERS: ATTEND Internal Medicine
DX: B20 Human immunodeficiency virus [HIV] disease (principal); F41.9 Anxiety disorder, unspecified

== ENCOUNTER → 2017-12-03 | Outpatient (CLI) | payer OTHER ==
[~2017-12-03] MED LIST changes: +MELO-83 PO; -MELO15TA4 PO
[2017-12-07 17:25] LABS: LSP % CELLS ANALYZED CD4 27 % (30-61); LSP ABSOLUTE CT CD4 377 cells/uL (490-1740)
== END ==
LOC: C.LAB1850 10:45
PROVIDERS: ATTEND Internal Medicine
DX: Z21 Asymptomatic human immunodeficiency virus [HIV] infection status (principal)

== ENCOUNTER → 2017-12-31 | Outpatient (CLI) | payer OTHER ==
--- NOTE | 2017-12-31 14:58 | DIAGNOSTIC IMAGING REPORT ---
CERVICAL WITHOUT CONTRAST HISTORY: 57 years-old Male M54.12 Cervical radiculopathy. Chronic neck pain with radiation into the bilateral upper extremities, left greater than right. COMPARISON: MRI cervical spine 07/09/2015 TECHNIQUE: Multiplanar multisequence MRI of the cervical spine was obtained without contrast. FINDINGS: Incidental note is made of an azygos lobe and fissure on the websphere process server developer localizer images. Study is mildly motion degraded. Posterior fossa structures are unremarkable. Signal within the cervical and imaged thoracic spinal cord appear unremarkable. No acute fracture identified. There is mild bone marrow edema involving the right C7 pedicle and superior articular facet. There is extensive bone marrow edema involving the left pedicle and superior articular facet. Mild associated edema within the adjacent soft tissues. There is 4 mm anterolisthesis C6 on C7 and 2 mm anterolisthesis C7 on T1 which appears unchanged secondary to underlying facet arthrosis. The axial images are motion degraded. C2-C3: Mild disc desiccation and uncovertebral spurring without central canal or foraminal narrowing. Bony fusion of the left facet joints with moderate right facet arthrosis. Mild left foraminal narrowing. The right foramen and central canal are patent. C3-C4: Disc desiccation and uncovertebral spurring. The left facet joints demonstrate bony fusion. Moderate right-sided facet arthrosis with apparent partial bony fusion. The central canal and neuroforamina appear patent. C4-C5: Mild intervertebral disc space narrowing and uncovertebral spurring with severe bilateral facet arthrosis. Small posterior disc bulge is also noted with flattening of the ventral thecal sac. Left foramen is patent. Moderate right foraminal narrowing. Right foraminal stenosis has mildly progressed. C5-C6: Moderate intervertebral disc space narrowing and uncovertebral spurring with circumferential annular disc bulge favoring the right lateral recess and right foramen. Moderate bilateral facet arthrosis. These findings cause mild central canal, moderate right lateral recess, moderate right and mild to moderate left foraminal narrowing. Slight progression of foraminal stenosis on the left. C6-C7: Moderate intervertebral disc space narrowing with uncovertebral spurring and circumferential annular disc bulge favoring the left paracentral distribution and left lateral recess. Flattening of the ventral thecal sac without significant central canal narrowing. There is mild left lateral recess stenosis. Central canal and neuroforamina appear generally patent. No significant change. Moderate facet arthrosis. C7-T1: Mild uncovertebral spurring and severe facet arthrosis. No central canal or foraminal narrowing identified. IMPRESSION: 1. Motion degraded exam. 2. Bone marrow edema involving the posterior elements and facets at C7 as described above are likely reactive with associated degenerative changes as described above. No acute fracture or subluxation identified. 3. Multilevel degenerative changes of the cervical spine, slightly progressed from comparison study as detailed above, most pronounced at the C5-C6 level. The above report was generated using voice recognition software. It may contain grammatical, syntax or spelling errors. Dictated: 12/31/2017 2:11 PM Transcribed: 12/31/2017 2:58 PM [email or web address] Electronically signed by: Gonzalez Gamble M.D. 12/31/2017 3:01 PM Dictated Date/Time: 12/31/2017 2:11 PM
== END | disposition home or self-care (01) ==
LOC: C.MRIBC 12:55
PROVIDERS: ATTEND Psychiatry & Neurology Neurology
DX: M47.22 Other spondylosis with radiculopathy, cervical region (principal)

== ENCOUNTER → 2018-03-05 | Outpatient (CLI) | payer OTHER ==
[~2018-03-05] MED LIST changes: -GABA-113 PO; +NRN800 PO; +PRLSR20 PO; -TIZA2TAB3 PO; +ZNF/4 PO
[2018-03-05 08:57] LABS: BASO % 0.3 %; BASO ABS # 0.01 K/uL (0-0.2); EOS ABS # 0.11 K/uL (0-0.5); HEMATOCRIT 38.9 % (42-52); LYMPH % 43.6 %; LYMPH ABS # 1.59 K/uL (1.2-3.4); MEAN CELL VOLUME 95.1 fL (80-100); MEAN CORPUSCULAR HEMOGLOBIN 34.2 pg (25-34); MEAN PLATELET VOLUME 8.9 fL (7.4-10.4); MONO % 9.3 %; MONO ABS # 0.34 K/uL (0.11-0.59); NEUT % 43.8 %; PLATELET COUNT 193 K/uL (130-400); RED CELL DISTRIBUTION WIDTH CV 13.7 % (11.5-14.5); RED CELL DISTRIBUTION WIDTH SD 47.5 fL (36.4-46.3); WHITE BLOOD COUNT 3.65 K/uL (4.8-10.8)
[2018-03-09 22:29] LABS: LSP % CELLS ANALYZED CD4 29 % (30-61); LSP ABSOLUTE CT CD4 442 cells/uL (490-1740)
== END | disposition home or self-care (01) ==
LOC: C.LAB 08:41
PROVIDERS: ATTEND Physician Assistant Medical
DX: Z01.812 Encounter for preprocedural laboratory examination (principal)

== ENCOUNTER → 2018-04-05 | Outpatient (CLI) | payer OTHER ==
[2018-04-05 09:33] LABS: BASO % 0.2 %; BASO ABS # 0.01 K/uL (0-0.2); EOS % 0.6 %; EOS ABS # 0.03 K/uL (0-0.5); HEMATOCRIT 40.2 % (42-52); HEMOGLOBIN 13.9 g/dL (14.0-18.0); IG# 0.04 K/uL (0.00-0.02); LYMPH % 17.5 %; LYMPH ABS # 0.87 K/uL (1.2-3.4); MEAN CELL VOLUME 100.5 fL (80-100); MEAN CORPUSCULAR HEMOGLOBIN 34.8 pg (25-34); MEAN CORPUSCULAR HGB CONC 34.6 g/dl (32-36); MEAN PLATELET VOLUME 9.4 fL (7.4-10.4); MONO % 8.5 %; MONO ABS # 0.42 K/uL (0.11-0.59); NEUT % 72.4 %; PLATELET COUNT 159 K/uL (130-400); RED CELL DISTRIBUTION WIDTH CV 13.9 % (11.5-14.5); RED CELL DISTRIBUTION WIDTH SD 50.7 fL (36.4-46.3); WHITE BLOOD COUNT 4.97 K/uL (4.8-10.8)
[2018-04-05 09:54] LABS: HEMOGLOBIN A1C 7.4 % (4.5-5.6)
[2018-04-05 09:59] LABS: ALBUMIN 3.5 gm/dl (3.4-5.0); ALKALINE PHOSPHATASE 217 U/L (45-117); ALT/SGPT 27 U/L (12-78); AST/SGOT 13 U/L (15-37); BLOOD UREA NITROGEN 28 mg/dl (7-18); CALCIUM 8.5 mg/dl (8.5-10.1); CARBON DIOXIDE 27 mmol/L (21-32); CREATININE 0.94 mg/dl (0.60-1.40); GLUCOSE 189 mg/dl (70-99); POTASSIUM 3.8 mmol/L (3.5-5.1); SODIUM 141 mmol/L (136-145); TOTAL PROTEIN 6.5 gm/dl (6.4-8.2)
[2018-04-07 15:41] LABS: HEPATITIS C VIRAL RNA BY PCR <15 NOT DETECTED IU/ML (<15); HEPATITIS C VIRAL RNA(LOG) PCR <1.18 NOT DETECTED LOG IU/ML (<1.18); TESTOSTERONE,TOTAL 46 ng/dL (250-1100)
== END | disposition home or self-care (01) ==
LOC: C.LAB1850 07:51
PROVIDERS: ATTEND Internal Medicine
DX: F41.9 Anxiety disorder, unspecified (principal); R79.89 Other specified abnormal findings of blood chemistry; R53.83 Other fatigue; R35.1 Nocturia; B18.2 Chronic viral hepatitis C; R73.09 Other abnormal glucose